=== PATIENT | male | born 1980 | race Caucasian/White ===

== ENCOUNTER 2017-05-30 20:08 | Emergency (ER) | payer SELFPAY ==
[2017-05-30 20:23] VITALS: BP 135/70
== END 2017-05-30 22:09 | disposition left against medical advice (07) ==
LOC: ED 20:08
DX: M54.9 Dorsalgia, unspecified (principal); Z53.21 Procedure and treatment not carried out due to patient leaving prior to being seen by health care provider

== ENCOUNTER 2017-05-31 10:54 | Emergency (ER) | payer SELFPAY ==
[2017-05-31 11:36] VITALS: BP 144/85
--- NOTE | 2017-05-31 12:19 | UC ---
Back Pain HPI - HPI Summary HPI Summary: complaint of lower back pain that started yesterday at 4:30 PM was picking up his son when it started constant aching pain in both side of lumbar spine pain is non radiating pain is worsened by any movement - can't find a position of comfort nothing lessens the pain took some aleve last night without relief hx of lower back pain - heriated disc 2x, pulled muscles denies fever, incontinence, no unintentional weight loss in the last year - History of Current Complaint Chief Complaint: UCBackPain Stated Complaint: BACK PAIN Time Seen by Provider: 05/31/17 12:05 Hx Obtained From: Patient - Allergies/Home Medications Allergies/Adverse Reactions: Allergies Allergy/AdvReac Type Severity Reaction Status Date / Time No Known Allergies Allergy Verified 05/31/17 11:36 PMH/Surg Hx/FS Hx/Imm Hx Previously Healthy: Yes - chronic back pain Cardiovascular History: Hypertension - Surgical History Surgical History: None - Family History Known Family History: Positive: Hypertension - father Negative: Cardiac Disease, Diabetes - Social History Occupation: Employed Full-time Lives: With Family Alcohol Use: Weekly Substance Use Type: None Smoking Status (MU): Heavy Every Day Tobacco Smoker Type: Cigarettes Amount Used/How Often: 1/2 PPD Length of Time of Smoking/Using Tobacco: since age 13 Cessation Counseling: Patient Advised to Stop Review of Systems Constitutional: Negative Skin: Negative Eyes: Negative ENT: Negative Respiratory: Negative Cardiovascular: Negative Gastrointestinal: Negative Genitourinary: Negative Motor: Negative Neurovascular: Negative Musculoskeletal: Other: - lower back Neurological: Negative Psychological: Negative All Other Systems Reviewed And Are Negative: Yes Physical Exam Triage Information Reviewed: Yes Appearance: Well-Nourished, Pain Distress Vital Signs: Initial Vital Signs Temp 99.2 F 05/31/17 11:31 Pulse 93 05/31/17 11:31 Resp 18 05/31/17 11:31 BP 144/85 05/31/17 11:31 Pulse Ox 100 05/31/17 11:31 Vital Signs Reviewed: Yes Eyes: Positive: Conjunctiva Clear ENT: Positive: Pharynx normal, TMs normal Neck: Positive: No Lymphadenopathy Respiratory: Positive: Lungs clear, Normal breath sounds, No respiratory distress, No accessory muscle use Cardiovascular: Positive: RRR, No Murmur, Pulses Normal Abdomen Description: Positive: Nontender, Soft Bowel Sounds: Positive: Present Musculoskeletal: Positive: Other: - Spine have no noted deformities or signs of inflammation. Curvature of thoracic, and lumbar spine are within normal limits. Bony features of shoulders and hips are of equal height bilaterally. Spinous processes of T1-L5 palpable, midline, and non-tender; No step-offs. lumbar paraspinal tenderness. Flexion, extension, and rotation of the remaining spinal column is limited d/t pain. Neurological: Positive: Alert, Other: - SLR negative, patellar reflexes intact Psychological Exam: Normal Skin Exam: Normal Back Pain Course/Dx - Course Course Of Treatment: exam completed. no red flags to warrant imaging. will refer to PT for further evaluation and treatment, will rx for muscle relaxer and NSAIDS. elevated blood pressure d/t pain - Differential Dx/Diagnosis Differential Diagnosis/HQI/PQRI: Herniated Disc, Strain, Sprain Provider Diagnoses: lower back pain, elevated blood pressure Discharge - Discharge Plan Condition: Stable Disposition: HOME Prescriptions: Cyclobenzaprine TAB* [Flexeril 10 MG TAB*] 10 mg PO BID PRN #20 tab PRN Reason: Spasms - Muscle Ibuprofen TAB* [Motrin TAB* 800 MG] 800 mg PO Q8H #30 tab Patient Education Materials: Low Back Strain (ED) Referrals: No Primary Care Phys,NOPCP [Primary Care Provider] - [facility] [place] [facility] [Outside] Additional Instructions: Start flexeril as directed. Do not drink or drive while on flexeril. Please call physical therapy for further evaluation and treatment. Take ibuprofen for fever or pain. Increase fluids and rest. Please review your discharge instructions. If your symptoms do not improve please call your primary care provider or return to urgent care.
[2017-05-31] MEDS ORDERED: HYDROcodone/ACETAMIN 5-325 MG* 1 TAB PO ONE (12:25)
== END 2017-05-31 12:37 | disposition home or self-care (01) ==
LOC: UCEAST 10:54
DX: M54.5 Low back pain (principal); G89.29 Other chronic pain; I10 Essential (primary) hypertension; F17.210 Nicotine dependence, cigarettes, uncomplicated
CPT/HCPCS: 99212; G0463

== ENCOUNTER 2018-01-14 13:51 | Emergency (ER) | payer SELFPAY ==
[2018-01-14 14:05] VITALS: BP 141/87
--- NOTE | 2018-01-14 14:21 | UC ---
Respiratory Complaint HPI - HPI Summary HPI Summary: cough and congestion for 4 days, subjective fever yesterday - History of Current Complaint Chief Complaint: UCRespiratory Stated Complaint: COUGH,SORE THROAT Time Seen by Provider: 01/14/18 14:08 Hx Obtained From: Patient Onset/Duration: Sudden Onset Timing: Constant Severity Initially: Moderate Severity Currently: Moderate Pain Intensity: 4 Pain Scale Used: 0-10 Numeric Character: Cough: Productive Aggravating Factors: Nothing Alleviating Factors: Nothing Associated Signs And Symptoms: Positive: Fever, Pleuritic Chest Pain, URI - Allergies/Home Medications Allergies/Adverse Reactions: Allergies Allergy/AdvReac Type Severity Reaction Status Date / Time No Known Allergies Allergy Verified 01/14/18 14:05 Home Medications: Home Medications Dm/PE/Acetaminophen/Doxylamine [Vicks Dayquil-Nyquil Cold-Flu] 1 mis PO [History] PMH/Surg Hx/FS Hx/Imm Hx Previously Healthy: Yes - Surgical History Surgical History: None - Family History Known Family History: Positive: Hypertension - father Negative: Cardiac Disease, Diabetes - Social History Occupation: Employed Full-time Lives: With Family Alcohol Use: Occasionally Substance Use Type: None Smoking Status (MU): Light Every Day Tobacco Smoker Type: Cigarettes Amount Used/How Often: 1/2 PPD Length of Time of Smoking/Using Tobacco: since age 13 Cessation Counseling: Counseled 3+Min - 10 Min Review of Systems Constitutional: Fever - subjective Skin: Negative Eyes: Negative ENT: Negative Respiratory: Cough Cardiovascular: Negative Gastrointestinal: Negative Genitourinary: Negative Motor: Negative Neurovascular: Negative Musculoskeletal: Negative Neurological: Headache Psychological: Negative Is Patient Immunocompromised?: No All Other Systems Reviewed And Are Negative: Yes Physical Exam Triage Information Reviewed: Yes Appearance: Well-Appearing, No Pain Distress, Well-Nourished Vital Signs: Initial Vital Signs Temp 99.0 F 01/14/18 14:00 Pulse 79 01/14/18 14:00 Resp 18 01/14/18 14:00 BP 141/87 01/14/18 14:00 Pulse Ox 100 01/14/18 14:00 Vital Signs Reviewed: Yes Eye Exam: Normal Eyes: Positive: Conjunctiva Clear ENT Exam: Normal ENT: Positive: Normal ENT inspection, Hearing grossly normal, Pharynx normal, TMs normal, Uvula midline. Negative: Nasal congestion, Nasal drainage, Tonsillar swelling, Tonsillar exudate, Trismus, Muffled voice, Hoarse voice, Dental tenderness, Sinus tenderness Neck exam: Normal Neck: Positive: Supple, Nontender, No Lymphadenopathy Respiratory Exam: Normal Respiratory: Positive: Chest non-tender, Lungs clear, Normal breath sounds, No respiratory distress, No accessory muscle use Cardiovascular Exam: Normal Cardiovascular: Positive: RRR, No Murmur, Pulses Normal, Brisk Capillary Refill Musculoskeletal Exam: Normal Musculoskeletal: Positive: Strength Intact, ROM Intact, No Edema Neurological Exam: Normal Neurological: Positive: Alert, Muscle Tone Normal Psychological Exam: Normal Skin Exam: Normal UC Diagnostic Evaluation - Laboratory O2 Sat by Pulse Oximetry: 100 Respiratory Course/Dx - Course Course Of Treatment: increase fluids, tylenol, ibuprofen for pain/fever, tessalon, albuterol, rest, nicotine cesasation information,hypertension information - Differential Dx/Diagnosis Provider Diagnoses: Acute bronchitis, nicotine dependent, elevated blood pressure without diagnosis of hypertension Discharge - Sign-Out/Discharge Documenting (check all that apply): Discharge - Discharge Plan Condition: Stable Disposition: HOME Prescriptions: Albuterol HFA INHALER* [Ventolin HFA Inhaler*] 2 puff INH Q4H PRN #1 mdi PRN Reason: cough/chest burning Benzonatate CAP* [Tessalon 100 MG CAP*] 100 - 200 mg PO TID PRN #50 cap PRN Reason: Cough Patient Education Materials: How to Stop Smoking (ED), Acute Bronchitis (ED), Hypertension (ED) Forms: *Work Release Referrals: [facility] [place] [facility] [Outside] - 2 Weeks [facility] [Outside] - 2 Weeks No Primary Care Phys,NOPCP [Primary Care Provider] - - Billing Disposition and Condition Condition: STABLE Disposition: HOME
== END 2018-01-14 14:45 | disposition home or self-care (01) ==
LOC: UCEAST 13:51
DX: J20.9 Acute bronchitis, unspecified (principal); R50.9 Fever, unspecified; R03.0 Elevated blood-pressure reading, without diagnosis of hypertension; Z71.6 Tobacco abuse counseling; F17.210 Nicotine dependence, cigarettes, uncomplicated
CPT/HCPCS: 99212; G0463

== ENCOUNTER 2018-01-15 20:11 | Emergency (ER) | payer SELFPAY ==
[2018-01-15 20:25] VITALS: BP 125/82
--- NOTE | 2018-01-15 20:38 | ED ---
Back Pain - HPI Summary HPI Summary: 37yo M with a hx of chronic recurring back pain states that he was diagnosed here with bronchitis yesterday. He returns today after a coughing fit this morning caused immediate bilateral low back pain and spasm. His range of motion is limited but he denies radiation of pain down the legs, incontinence, or difficulty of bowel/bladder. He sees the [facility] and has a [place] disability rating for this. He would like this episode documented. - History of Current Complaint Chief Complaint: UCBackPain Stated Complaint: BACK PAIN Time Seen by Provider: 01/15/18 20:32 Hx Obtained From: Patient Onset/Duration: Sudden Onset Pain Intensity: 5 - Allergies/Home Medications Allergies/Adverse Reactions: Allergies Allergy/AdvReac Type Severity Reaction Status Date / Time No Known Allergies Allergy Verified 01/15/18 20:25 Home Medications: Home Medications Naproxen Sodium [Aleve] 2 tab PO PRN 01/15/18 [History] PMH/Surg Hx/FS Hx/Imm Hx Musculoskeletal History: Reports: Hx Back Problems Infectious Disease History: No Infectious Disease History: Denies: History Other Infectious Disease, Traveled Outside the [place] in Last 30 Days - Family History Known Family History: Positive: Hypertension - father Negative: Cardiac Disease, Diabetes - Social History Alcohol Use: Occasionally Substance Use Type: Reports: None Smoking Status (MU): Current Every Day Smoker Type: Cigarettes Amount Used/How Often: 5 CIG/DAY Length of Time of Smoking/Using Tobacco: since age 13 Review of Systems Constitutional: Negative Gastrointestinal: Negative Positive: other - no incontinence, urgency. Positive: Decreased ROM, Other - back pain Neurological: Other - denies weakness/numbness All Other Systems Reviewed And Are Negative: Yes Physical Exam Triage Information Reviewed: Yes Vital Signs On Initial Exam: Initial Vitals Temp Pulse Resp BP Pulse Ox 37.3 C 63 18 125/82 100 01/15/18 20:21 01/15/18 20:21 01/15/18 20:21 01/15/18 20:21 01/15/18 20:21 Vital Signs Reviewed: Yes Appearance: Positive: Well-Appearing - no pain lying flat. Skin: Positive: Warm, Skin Color Reflects Adequate Perfusion, Dry Head/Face: Positive: Normal Head/Face Inspection Eyes: Positive: Normal ENT: Positive: Normal ENT inspection Respiratory/Lung Sounds: Positive: Clear to Auscultation Cardiovascular: Positive: RRR Male Genital Exam: Positive: Other - no saddle area numbness Musculoskeletal: Positive: Normal, Other - neg straight leg raises. Limited ROM low back. TTP anne low lumbar musculature with spasm. Neurological: Positive: Normal, Sensory/Motor Intact, Alert, Oriented to Person Place, Time, Other - antalgic gait. 2+ patellar DTRs. Psychiatric: Positive: Normal Diagnostics - Vital Signs Vital Signs Temp Pulse Resp BP Pulse Ox 01/15/18 20:21 37.3 C 63 18 125/82 100 - Laboratory Lab Statement: Any lab studies that have been ordered have been reviewed, and results considered in the medical decision making process. Back Pain Course/Dx - Course Course Of Treatment: chronic relapsing back pain. Pt offered trigger pt injection and refused. ROM/Ice, PT/Chiro, rx for nsaid and flexeril. - Diagnoses Differential Diagnosis/HQI/PQRI: Positive: Herniated Disc, Strain Provider Diagnoses: Acute lumbar myofascial strain Discharge - Sign-Out/Discharge Documenting (check all that apply): Discharge - Discharge Plan Condition: Good Disposition: HOME Prescriptions: Cyclobenzaprine TAB* [Flexeril 10 MG TAB*] 10 mg PO TID PRN #12 tab PRN Reason: muscle spasms Naproxen Sodium [Naproxen Sodium 500 MG TAB] 500 mg PO BID PRN #10 tab PRN Reason: Pain Patient Education Materials: Low Back Strain (ED) Forms: *Work Release Referrals: [facility] [place] [facility] [Outside] Additional Instructions: Call your provider at the [facility] tomorrow to be seen. Referral to Chiropractic or Physical therapy is recommended. Range of motion exercises, ice, massage to the area. Humidifier to minimize cough. Return if worse, trouble with bowel/bladder , numbness/weakness or other concerns as discussed. - Billing Disposition and Condition Condition: GOOD Disposition: HOME
[2018-01-15] MEDS ORDERED: Cyclobenzaprine TAB* 10 MG PO ONE (21:12)
[2018-01-15] MEDS ORDERED: Naproxen TAB* 250 MG PO ONE (21:12)
== END 2018-01-15 21:20 | disposition home or self-care (01) ==
LOC: UCEAST 20:11
DX: S39.012A Strain of muscle, fascia and tendon of lower back, initial encounter (principal); X50.0XXA Overexertion from strenuous movement or load, initial encounter; Y93.89 Activity, other specified; Y92.9 Unspecified place or not applicable; F17.210 Nicotine dependence, cigarettes, uncomplicated
CPT/HCPCS: 99212; A9270-GY; G0463

== ENCOUNTER 2019-07-08 10:27 | Emergency (ER) | payer SELFPAY ==
[2019-07-08 11:16] VITALS: BP 135/85
--- NOTE | 2019-07-08 11:48 | UC ---
Back Pain HPI - HPI Summary HPI Summary: 38-year-old male comes in with a chief complaint of low back pain. 2 days ago the patient was pushing some furniture sudden onset of low back pain. Pain in the lower lumbar area it's on the left and the right it's worse on the right. It does not go down the legs is no weakness no numbness or difficulty controlling urine or bowels. Movement makes the pain worse. Tried a lidocaine patch which did not help. Also tried some naproxen with minimal relief. He reports the pain a 4 out of 10. - History of Current Complaint Chief Complaint: UCBackPain Stated Complaint: BACK PAIN Time Seen by Provider: 07/08/19 11:32 Pain Intensity: 4 - Allergies/Home Medications Allergies/Adverse Reactions: Allergies Allergy/AdvReac Type Severity Reaction Status Date / Time No Known Allergies Allergy Verified 07/08/19 11:08 PMH/Surg Hx/FS Hx/Imm Hx Previously Healthy: Yes - Surgical History Surgical History: None - Family History Known Family History: Positive: Hypertension - father Negative: Cardiac Disease, Diabetes - Social History Alcohol Use: Occasionally Substance Use Type: Excessive Caffeine Smoking Status (MU): Former Smoker Type: Cigarettes Amount Used/How Often: 5 CIG/DAY Length of Time of Smoking/Using Tobacco: since age 13 When Did the Patient Quit Smoking/Using Tobacco: 09/2018 Review of Systems All Other Systems Reviewed And Are Negative: Yes Constitutional: Positive: Negative Skin: Positive: Negative Eyes: Positive: Negative ENT: Positive: Negative Respiratory: Positive: Negative Cardiovascular: Positive: Negative Gastrointestinal: Positive: Other - Reports some lower abdominal discomfort overnight. Genitourinary: Positive: Negative Motor: Positive: Negative Neurovascular: Positive: Negative Musculoskeletal: Positive: Other: - SEE HPI Neurological: Positive: Negative Psychological: Positive: Negative Is Patient Immunocompromised?: No Physical Exam Triage Information Reviewed: Yes Appearance: Well-Appearing, Well-Nourished, Pain Distress - MILD WITH ROM Vital Signs: Initial Vital Signs Temp 99.1 F 07/08/19 11:11 Pulse 71 07/08/19 11:11 Resp 18 07/08/19 11:11 BP 135/85 07/08/19 11:11 Pulse Ox 100 07/08/19 11:11 Vital Signs Reviewed: Yes Eye Exam: Normal Eyes: Positive: Conjunctiva Clear Neck: Positive: Supple Respiratory: Positive: No respiratory distress Musculoskeletal: Positive: Other: - Patient is tender to palpation in the lower lumbar area and to the left and the right of the lower lumbar. Legs have normal strength and range of motion no sensation deficit. Neurological: Positive: Alert, Muscle Tone Normal Psychological: Positive: Normal Response To Family, Age Appropriate Behavior Skin Exam: Normal Back Pain Course/Dx - Course Course Of Treatment: The plan is ice or heat whichever helps him more. A nonsteroidal anti- inflammatory. Flexeril as needed. Stretching as he is able to. Follow-up with primary care doctor or sports medicine if not improving. Reevaluate sooner if worse. - Differential Dx/Diagnosis Provider Diagnosis: Low back pain Discharge ED - Sign-Out/Discharge Documenting (check all that apply): Patient Departure All imaging exams completed and their final reports reviewed: No Studies - Discharge Plan Condition: Stable Disposition: HOME Prescriptions: Cyclobenzaprine TAB* [Flexeril 10 MG TAB*] 10 mg PO TID PRN #15 tab PRN Reason: Pain - Moderate Patient Education Materials: Acute Low Back Pain (ED), Lower Back Exercises (ED ) Forms: *Work Release Referrals: [facility] [Provider Group] Additional Instructions: FOLLOW UP WITH YOUR PRIMARY CARE DOCTOR OR SPORTS MEDICINE IF NOT COMPLETELY IMPROVED. GET REEVALUATED SOONER IF WORSE; PAIN, WEAKNESS, NUMBNESS, DIFFICULTY CONTROLLING BOWEL OR BLADDER OR ANY QUESTIONS OR CONCERNS. - Billing Disposition and Condition Condition: STABLE Disposition: Home
== END 2019-07-08 11:54 | disposition home or self-care (01) ==
LOC: UCCORT 10:27
DX: M54.5 Low back pain (principal); Z87.891 Personal history of nicotine dependence
CPT/HCPCS: 99212; G0463

== ENCOUNTER 2019-10-23 14:30 | Emergency (ER) | payer BC ==
[2019-10-23 14:51] VITALS: BP 134/80
[2019-10-23] MEDS ORDERED: HYDROcodone/ACETAMIN 5-325 MG* 1 TAB PO ONE (15:25)
--- NOTE | 2019-10-23 15:41 | UC ---
Back Pain HPI - HPI Summary HPI Summary: 39 yo male tweeted his back 2 days ago playing indoors mini golf Yesterday severe pain putting car seat in back seat of car now with severe lower back pain radiating to right buttock and post thigh Hx of similar symptoms periodically Hx of DDD - History of Current Complaint Chief Complaint: UCBackPain Stated Complaint: BACK PAIN Time Seen by Provider: 10/23/19 14:58 Hx Obtained From: Patient Onset/Duration: Sudden Onset, Lasting Days Timing: Constant Severity Initially: Mild Severity Currently: Severe Pain Intensity: 8 Pain Scale Used: 0-10 Numeric Back Pain: Is Diffuse, Radiates To - right buttock and post thigh Character: Aching, Throbbing, Spasmodic Aggravating Factor(s): Movement, Bending, Walking Alleviating Factor(s): Rest Associated Signs And Symptoms: Negative: Swelling, Redness, Bruising, Fever, Weakness, Numbness, Tingling, Abdominal Pain, Flank Pain, Bladder Incontinence, Bowel Incontinence, Weight Loss, Pain with Weight Bearing Related History: Similar Episode Dx As - back strain, Previous Back Injury Full Body (No Head): 1 - varner here 2 - radiates here - Allergies/Home Medications Allergies/Adverse Reactions: Allergies Allergy/AdvReac Type Severity Reaction Status Date / Time No Known Allergies Allergy Verified 10/23/19 14:50 PMH/Surg Hx/FS Hx/Imm Hx Previously Healthy: Yes - Surgical History Surgical History: None - Family History Known Family History: Positive: Hypertension - father Negative: Cardiac Disease, Diabetes - Social History Alcohol Use: Occasionally Substance Use Type: Excessive Caffeine, Marijuana Substance Use Comment - Amount & Last Used: last marijuana was 10/22/19 Smoking Status (MU): Former Smoker Type: Cigarettes Amount Used/How Often: 5 CIG/DAY Length of Time of Smoking/Using Tobacco: since age 13 When Did the Patient Quit Smoking/Using Tobacco: 09/2018 Review of Systems All Other Systems Reviewed And Are Negative: Yes Constitutional: Positive: Negative Skin: Positive: Negative Eyes: Positive: Negative ENT: Positive: Negative Respiratory: Positive: Negative Cardiovascular: Positive: Negative Gastrointestinal: Positive: Negative Genitourinary: Positive: Negative Motor: Positive: Negative Neurovascular: Positive: Negative Musculoskeletal: Positive: Negative Neurological: Positive: Negative Psychological: Positive: Negative Physical Exam Triage Information Reviewed: Yes Appearance: Well-Appearing, Well-Nourished, Pain Distress Vital Signs: Initial Vital Signs Temp 98.5 F 10/23/19 14:44 Pulse 72 10/23/19 14:44 Resp 12 10/23/19 14:44 BP 134/80 10/23/19 14:44 Pulse Ox 99 10/23/19 14:44 Vital Signs Reviewed: Yes Eyes: Positive: Conjunctiva Clear ENT: Positive: Hearing grossly normal. Negative: Nasal congestion, Nasal drainage, Trismus, Muffled voice, Hoarse voice Dental Exam: Normal Neck: Positive: Supple, Nontender, No Lymphadenopathy Respiratory: Positive: Lungs clear, Normal breath sounds, No respiratory distress, No accessory muscle use Cardiovascular: Positive: RRR, No Murmur Musculoskeletal: Positive: ROM Intact, No Edema Neurological: Positive: Alert Psychological Exam: Normal Skin Exam: Normal - Additional Comments Slow wide wide based gait back- limited ROM knee jerk I/IV bilat ankle jerk 1/IV bilat strenght intact Back Pain Course/Dx - Differential Dx/Diagnosis Provider Diagnosis: Acute lumbar myofascial strain, Elevated BP without diagnosis of hypertension Discharge ED - Sign-Out/Discharge Documenting (check all that apply): Patient Departure All imaging exams completed and their final reports reviewed: No Studies - Discharge Plan Condition: Stable Disposition: HOME Prescriptions: Meloxicam [Mobic] 7.5 mg PO BID PRN #20 tablet PRN Reason: Pain - Moderate Tizanidine HCl [Zanaflex] 4 mg PO QID PRN #28 cap PRN Reason: Spasms - Back Patient Education Materials: Low Back Strain (ED) Forms: *Gen. Provider Communication, *Work Release Referrals: Benoit Tatum MD [Primary Care Provider] - Additional Instructions: PT consult see Dr. Tatum at [facility] in 1-2 weeks for recheck you may also take tylenol in addition to meds prescribed - Billing Disposition and Condition Condition: STABLE Disposition: Home
== END 2019-10-23 15:38 | disposition home or self-care (01) ==
LOC: UCCORT 14:30
DX: S39.012A Strain of muscle, fascia and tendon of lower back, initial encounter (principal); Z87.891 Personal history of nicotine dependence; X50.9XXA Other and unspecified overexertion or strenuous movements or postures, initial encounter; Y93.53 Activity, golf; Y92.9 Unspecified place or not applicable
CPT/HCPCS: 99212; G0463